=== PATIENT | female | born 1935 | race Caucasian/White ===

== ENCOUNTER 2021-10-02 16:12 | Inpatient (IN) ==
[2021-10-03] MEDS: levETIRAcetam 250 MG TABLET PO SCH (22:39)
[2021-10-03] MEDS: Patient Taking Own Medication 1 EACH TP SCH (22:39)
[2021-10-04 06:05] LABS: Basophils # 0.1 K/mcL (0.0-0.2); Basophils % 0.5 %; Eosinophils # 0.1 K/mcL (0.0-0.6); Eosinophils % 1.1 %; Hematocrit 33.6 % (35.3-44.9); Hemoglobin 10.7 g/dL (11.5-15.4); Immature Granulocytes % 0.4 % (0-4); Lymphocytes % 18.8 %; Mean Corpuscular HGB Conc 31.8 g/dL (31.6-35.5); Mean Corpuscular Hemoglobin 29.5 pg (28.0-33.3); Mean Corpuscular Volume 92.6 fL (83.0-100.0); Mean Platelet Volume 9.7 fL (9.4-12.4); Monocytes # 0.9 K/mcL (0.0-1.3); Monocytes % 8.6 %; Neutrophils # 7.5 K/mcL (1.6-8.9); Platelet Count 370 K/mcL (140-400); Red Blood Count 3.63 M/mcL (3.82-4.97); Red Cell Distribution Width 15.3 % (11.5-14.5); Segmented Neutrophils % 70.6 %; White Blood Count 10.7 K/mcL (4.3-11.1)
[2021-10-04 06:28] LABS: Potassium 4.2 mEq/L (3.5-5.1)
[2021-10-04] MEDS ORDERED: *HR* Enoxaparin 40 MG/0.4 ML SYRINGE SQ SCH (07:00)
[2021-10-04] MEDS: amLODIPine 5 MG TABLET PO SCH (08:29)
[2021-10-04] MEDS: Folic Acid 1 MG TABLET PO SCH (08:29)
[2021-10-04] MEDS: levETIRAcetam 250 MG TABLET PO SCH ×2 (08:29→21:55)
[2021-10-04] MEDS: Gabapentin 100 MG CAPSULE PO SCH (08:29)
[2021-10-04] MEDS: Thiamine (B-1) 100 MG TABLET PO SCH (08:29)
[2021-10-04] MEDS: predniSONE 10 MG TABLET PO SCH (08:30)
[2021-10-04] MEDS: Patient Taking Own Medication 1 EACH TP SCH ×2 (08:30→13:36)
[2021-10-04 13:56] LABS: Adenovirus Not Detected (Not Detect); Coronavirus 229E Not Detected (Not Detect); Coronavirus HKU1 Not Detected (Not Detect); Coronavirus NL63 Not Detected (Not Detect); Coronavirus OC43 Not Detected (Not Detect)
[2021-10-04 13:57] LABS: Bordetella Pertussis Not Detected (Not Detect); Chlamydophila pneumoniae Not Detected (Not Detect); Human Metapneumovirus Not Detected (Not Detect); Human Rhinovirus/Enterovirus Not Detected (Not Detect); Influenza A Subtype 2009 H1 Not Detected (Not Detect); Influenza B Not Detected (Not Detect); Mycoplasma pneumoniae Not Detected (Not Detect); Parainfluenza Virus 1 Not Detected (Not Detect); Parainfluenza Virus 2 Not Detected (Not Detect); Parainfluenza Virus 3 Not Detected (Not Detect); Parainfluenza Virus 4 Not Detected (Not Detect); Respiratory Syncytial Virus Not Detected (Not Detect); SARS-CoV-2 Not Detected (Not Detect)
[2021-10-05] MEDS: Gabapentin 100 MG CAPSULE PO SCH (08:12)
[2021-10-05] MEDS: predniSONE 10 MG TABLET PO SCH (08:12)
[2021-10-05] MEDS: levETIRAcetam 250 MG TABLET PO SCH ×2 (08:13→22:01)
[2021-10-05] MEDS: Thiamine (B-1) 100 MG TABLET PO SCH (08:13)
[2021-10-05] MEDS: amLODIPine 5 MG TABLET PO SCH (08:13)
[2021-10-05] MEDS: Folic Acid 1 MG TABLET PO SCH (08:13)
[2021-10-06] MEDS: predniSONE 10 MG TABLET PO SCH (08:31)
[2021-10-06] MEDS: levETIRAcetam 250 MG TABLET PO SCH ×2 (08:31→20:09)
[2021-10-06] MEDS: Gabapentin 100 MG CAPSULE PO SCH (08:31)
[2021-10-06] MEDS: Thiamine (B-1) 100 MG TABLET PO SCH (08:31)
[2021-10-06] MEDS: Folic Acid 1 MG TABLET PO SCH (08:31)
[2021-10-06] MEDS: amLODIPine 5 MG TABLET PO SCH (08:31)
[2021-10-07] MEDS: amLODIPine 5 MG TABLET PO SCH (08:25)
[2021-10-07] MEDS: Folic Acid 1 MG TABLET PO SCH (08:35)
[2021-10-07] MEDS: Thiamine (B-1) 100 MG TABLET PO SCH (08:35)
[2021-10-07] MEDS: levETIRAcetam 250 MG TABLET PO SCH ×2 (08:35→19:59)
[2021-10-07] MEDS: predniSONE 10 MG TABLET PO SCH (08:35)
[2021-10-07] MEDS: Gabapentin 100 MG CAPSULE PO SCH (08:35)
[2021-10-07] MEDS ORDERED: *HR* Methotrexate 2.5 MG TABLET PO SCH (09:00)
[2021-10-08 07:24] VITALS: BP 115/73; PULSE 85; RESP 16; TEMP 98.2; O2SAT 96
[2021-10-08] MEDS: Thiamine (B-1) 100 MG TABLET PO SCH (09:00)
[2021-10-08] MEDS: predniSONE 10 MG TABLET PO SCH (09:00)
[2021-10-08] MEDS: levETIRAcetam 250 MG TABLET PO SCH (09:00)
[2021-10-08] MEDS: amLODIPine 5 MG TABLET PO SCH (09:00)
[2021-10-08] MEDS: Gabapentin 100 MG CAPSULE PO SCH (09:00)
[2021-10-08] MEDS: Folic Acid 1 MG TABLET PO SCH (09:00)
== END 2021-10-08 15:26 | disposition home health service (06) | DRG 56 ==
LOC: INPGRE 10-03 17:44
PROVIDERS: ADMIT Family Medicine; ATTEND Family Medicine